=== PATIENT | female | born 1975 | race Caucasian/White ===

== ENCOUNTER 2017-01-01 16:15 | Emergency (ER) | payer MEDICAID ==
[~2017-01-01] VITALS: Ht 160 cm; Wt 76.7 kg
[2017-01-01 16:42] VITALS: BP 114/78
--- NOTE | 2017-01-01 16:46 | NUR ---
PATIENT AMBULATED TO ER BED 8.
--- NOTE | 2017-01-01 16:47 | NUR ---
Patient being evaluated by physician at bedside.
--- NOTE | 2017-01-01 17:00 | NUR ---
PATIENT PRESENTS TO ED WITH c/o on-going vaginal bleeding x 4months---pt saw her pmd x5 days ago, labs drawn and given contraceptive medications x3 days--pt states bleeding persist , currently at 3 sanitary napkins/ day denies dizziness, no sob, no roberts; DENIES N/V/D; SKIN IS PINK/WARM/DRY; AAOX4 WITH EVEN AND STEADY GAIT; LUNGS CLEAR BL; HR EVEN AND REGULAR; PT DENIES ANY FEVER, CP, SOB, OR COUGH AT THIS TIME; PATIENT STATES PAIN OF 0/10 AT THIS TIME; VSS; PATIENT POSITIONED FOR COMFORT; HOB ELEVATED; BEDRAILS UP X2; BED DOWN. ER MD MADE AWARE OF PT STATUS.
[2017-01-01 17:06] LABS: BASOPHILS # (AUTO) 0.1 K/uL (0.00-0.22); BASOPHILS % (AUTO) 1.1 % (0.0-2.0); EOSINOPHILS # (AUTO) 0.3 K/uL (0-0.4); EOSINOPHILS % (AUTO) 3.8 % (0.0-4.0); HEMATOCRIT 42.5 % (36-48); HEMOGLOBIN 14.3 g/dL (12.0-16.0); LYMPHOCYTES # (AUTO) 1.9 K/uL (2.5-16.5); LYMPHOCYTES % (AUTO) 24.1 % (20.5-51.1); MEAN CORPUSCULAR HEMOGLOBIN 31 pg (27-31); MEAN CORPUSCULAR HGB CONC 34 g/dL (33-37); MEAN CORPUSCULAR VOLUME 92 fL (80-94); MONOCYTES # (AUTO) 0.3 K/uL (0.8-1.0); MONOCYTES % (AUTO) 3.9 % (1.7-9.3); NEUTROPHILS # (AUTO) 5.3 K/uL (1.8-7.7); NEUTROPHILS % (AUTO) 67.1 % (42.2-75.2); PLATELET COUNT (AUTO) 304 K/uL (140-450); RED BLOOD CELL COUNT(AUTO) 4.61 MIL/uL (4.20-5.40); RED CELL DISTRIBUTION WIDTH 12.6 % (11.6-13.7); WHITE BLOOD COUNT (AUTO) 7.9 K/uL (4.8-10.8)
[2017-01-01 17:08] LABS: APPEARANCE,URINE CLEAR (CLEAR); BILIRUBIN,URINE NEGATIVE (NEGATIVE); BLOOD, URINE 3+ (NEGATIVE); COLOR,URINE YELLOW (YELLOW); LEUKOCYTE ESTERASE ,URINE NEGATIVE (NEGATIVE); NITRITE, URINE NEGATIVE (NEGATIVE); PH,URINE 5.5 (5.0-9.0); PROTEIN,URINE NEGATIVE (NEGATIVE); UGLUCOSE NEGATIVE (NEGATIVE); UROBILINOGEN,URINE 0.2 EU/dL (0.2 - 1)
[2017-01-01 17:16] LABS: BACTERIA,URINE FEW /HPF (None Seen); RBC,URINE TOO NUMEROUS TO COUN /HPF (0-5); SQUAMOUS EPITHELIAL CELL,UR RARE /LPF (0-3 (FEW)); WBC,URINE NONE SEEN /HPF (0-5)
[2017-01-01 17:17] LABS: ANION GAP 13.8 (8-16); CALCIUM 8.1 mg/dL (8.5-10.1); POTASSIUM 3.8 mmol/L (3.5-5.1)
[2017-01-01 17:23] LABS: ALBUMIN 3.6 g/dL (3.4-5.0); TOTAL BILIRUBIN 0.8 mg/dL (0.0-1.0); TOTAL PROTEIN, SERUM 7.5 g/dL (6.4-8.2)
[2017-01-01 17:35] VITALS: BP 126/75
== END 2017-01-01 17:35 | disposition home or self-care (01) ==
LOC: MED 16:15
DX: N93.8 Other specified abnormal uterine and vaginal bleeding (principal)
CPT/HCPCS: 36415; 80053; 81001; 81025; 85025; 99284